=== PATIENT | male | born 1965 | race Caucasian/White ===

== ENCOUNTER 2017-09-05 23:02 | Emergency (ER) | payer BC ==
[~2017-09-05] VITALS: Ht 182.9 cm; Wt 106.0 kg
[~2017-09-05 23:02] MED LIST: ASPI-232 PO
[2017-09-05 23:05] VITALS: TEMP 36.7; Ht 182.9 cm; Wt 106.0 kg
--- NOTE | 2017-09-05 23:53 | EMERGENCY ROOM VISIT NOTE ---
History Report prepared by Evette: Iban Hennessy Under the Supervision of: Dr. Yue Lakhani D.O. First contact with patient: 23:14 Chief Complaint: IRREGULAR HEARTBEAT Stated Complaint: HEART RHYTHM Nursing Triage Summary: pt reports feeling like " my heart was beating fast when I was lying back on my recliner" denies cp , sob , LIN or NV . History of Present Illness The patient is a 52 year old male who presents to the Emergency Room with complaints of resolved irregular heart rate that occurred earlier tonight. The patient states that he went to sit in his chair, and he could feel that his heart was beating out of rhythm. He notes that it was worse when he was lying down, and improved when he would sit up. The patient additionally states that he was having a weird feeling in his throat. The patient denies any recent new medications, cough, cold symptoms, abdominal pain, leg cramping, and leg swelling. The patient has a history of pericarditis, and he denies any history diabetes or hypertension. He notes that he drank two cups of coffee this morning which is normal for him, and he drank a bottle of green tea at dinner. The patient notes that he has a lot to gone done recently. He denies any difficulty with bowel movements and urination. Source of History: patient Onset: earlier tonight Position: other (global) Quality: other (irregular heart rate) Timing: resolved Modifying Factors (Worsening): other (lying down) Modifying Factors (Relieving): other (sitting up) Associated Symptoms: No cough, No abdominal pain Review of Systems See HPI for pertinent positives & negatives. A total of 10 systems reviewed and were otherwise negative. Past Medical & Surgical Medical Problems: (1) Pericarditis Family History Cancer Diabetes mellitus Hypertension Social History Smoking Status: Never Smoker Alcohol Use: none Marital Status: Occupation Status: employed Current/Historical Medications No Active Prescriptions or Reported Meds Allergies Coded Allergies: Cephalexin (Verified Allergy, Mild, SAM ITCHY, 09/06/17) Physical Exam Vital Signs Date Time Temp Pulse Resp B/P (MAP) Pulse Ox O2 Delivery O2 Flow Rate FiO2 09/06/17 00:45 81 18 128/74 96 09/05/17 23:16 84 09/05/17 23:05 36.7 96 20 163/98 96 Room Air Physical Exam HEENT: Head - normocephalic and atraumatic Pupils are equal, round, and reactive to light. Extraocular eye muscles are intact, and sclera are anicteric. Nose - moist nasal mucosa without discharge. Mouth - moist buccal mucosa. Oropharynx is nonerythematous and there is no tonsillar exudate or edema noted. Neck: Supple; no JVD, nuchal rigidity, cervical lymphadenopathy. Heart: Regular rate and rhythm. There is a normal S1 and S2 with no murmurs, clicks, or gallops appreciated. Lungs: Clear to auscultation bilaterally with no wheezes, rales, or rhonchi. Abdomen: Soft, completely nontender, nondistended, with good bowel sounds. There are no palpable pulsatile masses or hepatosplenomegaly. There is no guarding, rigidity, or rebound noted. Extremities: No evidence of cyanosis, clubbing, or edema. There are easily palpable peripheral pulses. Skin: warm and dry with good turgor and no rashes. Medical Decision & Procedures ER Provider Diagnostic Interpretation: X-ray results as stated below per interpretation by me: Chest One View: Normal cardiac silhouette. No pulmonary findings. Laboratory Results 09/05/17 23:50 09/05/17 23:50 Test 09/05/17 23:50 Red Blood Count 5.07 M/uL (4.7-6.1) Mean Corpuscular Volume 90.7 fL (80-100) Mean Corpuscular Hemoglobin 32.3 pg (25-34) Mean Corpuscular Hemoglobin Concent 35.7 g/dl (32-36) RDW Standard Deviation 42.3 fL (36.4-46.3) RDW Coefficient of Variation 12.9 % (11.5-14.5) Mean Platelet Volume 10.5 fL (7.4-10.4) Erythrocyte Sedimentation Rate 2 mm/hr (0-14) Anion Gap 7.0 mmol/L (3-11) Est Creatinine Clear Calc Drug Dose 106.4 ml/min Estimated GFR () 98.0 Estimated GFR (Non- 84.5 BUN/Creatinine Ratio 15.0 (10-20) Calcium Level 8.7 mg/dl (8.5-10.1) C-Reactive Protein < 0.29 mg/dl (0-0.29) Thyroid Stimulating Hormone (TSH) 1.670 uIu/ml (0.300-4.500) Laboratory results per my review. ECG Indication: palpitations Rate (beats per minute): 84 Rhythm: normal sinus Findings: no acute ischemic change, no ectopy ED Course 2337: Past medical records reviewed. The patient was evaluated in room B3. A complete history and physical exam was performed. A twelve-lead EKG was obtained. Labs are drones above. A portable chest x-ray was performed and was unremarkable. 0035: I reevaluated the patient, and he was doing well. He did not have any more episodes of palpitations. I reviewed the results of his x-ray and laboratory studies with him. I discussed the discharge instructions with the patient, and he was agreeable. The patient will be discharged home. Medical Decision The patient is a 52 year old male who presents to the ED with irregular heart beat. Differential diagnosis includes cardiac arrhythmia, hyperthyroidism, anxiety, and pericarditis. Lab results: Sed rate of 2, no leukocytosis, stable H&H, normal TSH and adrenal function, glucose of 135, C reactive protein less than 0.29 patient presents to the emergency department after feeling palpitations or an irregular heartbeat. He was observing the teletypesetter monitor here in the emergency department with no recurrent episodes. Cardiac enzymes were negative. Chest x-ray was unremarkable. We reviewed possible causes of patient's symptoms. He was told to return to the emergency department immediately by calling 911 if he developed any additional episodes of palpitations which were accompanied by other symptoms such as syncope, near syncope, shortness of breath or chest pain. Otherwise, the patient follow up with his PCP. Medication Reconcilliation Current Medication List: was personally reviewed by me Blood Pressure Screening Patient's blood pressure: Elevated blood pressure Blood pressure disposition: Elevated BP felt to be situational Impression Primary Impression: Heart palpitations Scribe Attestation The scribe's documentation has been prepared under my direction and personally reviewed by me in its entirety. I confirm that the note above accurately reflects all work, treatment, procedures, and medical decision making performed by me. Departure Information Dispostion Home / Self-Care Prescriptions No Active Prescriptions or Reported Meds Referrals Christen Dutta M.D. (MEDICAL) (PCP) Forms HOME CARE DOCUMENTATION FORM, IMPORTANT VISIT INFORMATION Patient Instructions ED Palpitations, My [facility] Additional Instructions If you have other episodes of feeling your heart beat, please take your pulse. You will need to call 911 if you have an episode that is associated with other symptoms such as chest pain, shortness of breath, lightheadedness, or nearly passing out.
[2017-09-06 00:02] LABS: MEAN CELL VOLUME 90.7 fL (80-100); MEAN CORPUSCULAR HEMOGLOBIN 32.3 pg (25-34); MEAN CORPUSCULAR HGB CONC 35.7 g/dl (32-36); MEAN PLATELET VOLUME 10.5 fL (7.4-10.4); PLATELET COUNT 207 K/uL (130-400); RED BLOOD COUNT 5.07 M/uL (4.7-6.1); WHITE BLOOD COUNT 7.57 K/uL (4.8-10.8)
[2017-09-06 00:18] LABS: BLOOD UREA NITROGEN 15 mg/dl (7-18); C-REACTIVE PROTEIN < 0.29 mg/dl (0-0.29); CALCIUM 8.7 mg/dl (8.5-10.1); CARBON DIOXIDE 25 mmol/L (21-32); CHLORIDE 104 mmol/L (98-107); CREATININE 1.01 mg/dl (0.60-1.40); GLUCOSE 135 mg/dl (70-99); POTASSIUM 3.7 mmol/L (3.5-5.1); SODIUM 137 mmol/L (136-145)
[2017-09-06 00:45] VITALS: BP 128/74; PULSE 81; O2SAT 96
--- NOTE | 2017-09-06 07:24 | DIAGNOSTIC IMAGING REPORT ---
CHEST ONE VIEW PORTABLE CLINICAL HISTORY: 52 years-old Male presenting with eval for cardiomegaly. TECHNIQUE: Portable upright AP view of the chest was obtained. COMPARISON: 01/16/2013. FINDINGS: Cardiomediastinal silhouette normal. Lungs and pleural spaces clear. Osseous structures normal. Upper abdomen normal. IMPRESSION: 1. No acute cardiopulmonary disease. No cardiomegaly. Electronically signed by: Brett Munroe M.D. 09/06/2017 7:23 AM Dictated Date/Time: 09/06/2017 7:22 AM
== END 2017-09-06 00:54 | disposition home or self-care (01) ==
LOC: C.EDB 23:03
DX: R00.2 Palpitations (principal); Z83.3 Family history of diabetes mellitus; Z82.49 Family history of ischemic heart disease and other diseases of the circulatory system